=== PATIENT | female | born 1930 | race Caucasian/White ===

== ENCOUNTER → 2016-10-21 | Outpatient (CLI) | payer MEDICARE, BC | LOC: RAD 13:52 | DX: N63 Unspecified lump in breast (principal) ==

== ENCOUNTER 2017-03-31 09:00 | Outpatient (RCR) | payer MEDICARE, BC | END 2017-03-31 09:30 | disposition home or self-care (01) | LOC: PT 09:00 | DX: Z47.1 Aftercare following joint replacement surgery (principal); Z96.651 Presence of right artificial knee joint; Z79.01 Long term (current) use of anticoagulants | CPT/HCPCS: G8978-GP; G8979-GP ==

== ENCOUNTER → 2017-10-05 | Outpatient (CLI) | payer MEDICARE, BC | LOC: EDBD 10:00 → MAMMO 10:00 | DX: Z12.31 Encounter for screening mammogram for malignant neoplasm of breast (principal); Z90.12 Acquired absence of left breast and nipple ==

== ENCOUNTER → 2019-01-30 | Outpatient (CLI) | payer MEDICARE, BC | LOC: MAMMO 13:45 → EDBD 13:56 → MAMMO 13:56 | DX: Z12.31 Encounter for screening mammogram for malignant neoplasm of breast (principal); N64.89 Other specified disorders of breast ==

== ENCOUNTER → 2019-02-08 | Outpatient (CLI) | payer MEDICARE, BC | LOC: MAMMO 13:00 | DX: R92.2 Inconclusive mammogram (principal) ==

== ENCOUNTER 2019-09-12 09:00 | Outpatient (RCR) | payer MEDICARE, BC | END 2019-09-12 09:30 | disposition still patient (30) | LOC: PT 09:00 | DX: M25.551 Pain in right hip (principal); Z96.641 Presence of right artificial hip joint ==